=== PATIENT | male | born 1955 | race African-American/Black ===

== ENCOUNTER 2017-09-09 03:45 | Emergency (ER) | payer OTHER, MEDICARE, MEDICAID ==
[2017-09-09] MEDS: ALBUTEROL 0.083% (NEB) 2.5 MG/3 ML AMP NEB (04:23)
[2017-09-09] MEDS: IPRATROPIUM (NEB) 0.5 MG/2.5 ML AMP NEB (04:23)
[2017-09-09 04:46] LABS: ADD MAN DIFF? NO
[2017-09-09 04:47] LABS: WHITE BLOOD COUNT 23.4 10^3/ul (4.8-10.8)
[2017-09-09 04:47] LABS: ABNORMAL IP MESSAGE 1; BASOPHIL # 0.2 10^3/ul (0.0-0.1); BASOPHILS % 0.7 % (0.0-2.0); EOSINOPHILS # 0.6 10^3/ul (0.0-0.5); EOSINOPHILS % 2.5 % (0.0-7.0); HEMATOCRIT 36.1 % (42.0-52.0); LYMPHOCYTES # 0.8 10^3/ul (0.8-2.9); LYMPHOCYTES % 3.6 % (15.0-51.0); MEAN CORPUSCULAR HEMOGLOBIN 34.6 pg (29.0-33.0); MEAN CORPUSCULAR HGB CONC 30.5 g/dl (32.0-37.0); MEAN CORPUSCULAR VOLUME 113.5 fl (82.0-101.0); MEAN PLATELET VOLUME 10.9 fl (7.4-10.4); MONOCYTE # 1.3 10^3/ul (0.3-0.9); MONOCYTES % 5.4 % (0.0-11.0); NEUTROPHIL # 20.5 10^3/ul (1.6-7.5); NEUTROPHILS % 87.3 % (39.0-77.0); NUCLEATED RED BLOOD CELLS # 0.2 10^3/ul (0.0-0.0); NUCLEATED RED BLOOD CELLS% 0.9 /100WBC (0.0-0.0); PLATELET COUNT 425 10^3/UL (140-415); POSITIVE DIFF @See below; RED BLOOD COUNT 3.18 10^6/ul (4.70-6.10); RED CELL DISTRIBUTION WIDTH 16.7 % (11.5-14.5)
[2017-09-09] MEDS: SOD CHLORIDE 0.9% 1,000 ML IV ×3 (04:51→06:56)
[2017-09-09] MEDS: SODIUM CHLORIDE 0.9% 1L BAG IV* (05:01)
[2017-09-09 05:07] LABS: INR 1.65; PARTIAL THROMBOPLASTIN TIME 36.6 Sec (25.0-35.0); PROTIME 19.9 Sec (11.9-14.9); PT RATIO 1.6
[2017-09-09 05:13] LABS: ALANINE AMINOTRANSFERASE 38 IU/L (13-69); ALBUMIN 4.1 g/dl (3.3-4.9); ALBUMIN/GLOBULIN RATIO 1.02; ALKALINE PHOSPHATASE 182 IU/L (42-121); ANION GAP 30 (8-16); ASPARTATE AMINO TRANSFERASE 36 IU/L (15-46); BLOOD UREA NITROGEN 43 mg/dl (7-20); CALCIUM 8.9 mg/dl (8.4-10.2); CARBON DIOXIDE 26 mmol/L (21-31); CHLORIDE 98 mmol/L (97-110); CREATININE 5.72 mg/dl (0.61-1.24); GLUCOSE 166 mg/dl (70-220); SODIUM 148 mmol/L (135-144); TOTAL PROTEIN 8.1 g/dl (6.1-8.1)
[2017-09-09 05:16] LABS: POTASSIUM 5.7 mmol/L (3.5-5.1)
[2017-09-09 05:23] LABS: TROPONIN-I 0.027 ng/ml (0.00-0.12)
[2017-09-09] MEDS: PIPER-TAZO 3.375 GM IV (PMX) 100 ML IVPB (05:40)
[2017-09-09] MEDS: VANCOMYCIN 1 GM (PMX) 250 ML IVPB (05:57)
[2017-09-09] MEDS: LIDOCAINE 1% (MPF) 5 ML VIAL SC (06:30)
[2017-09-09] MEDS ORDERED: VANCOMYCIN IV PER PHARMACY XX (06:30)
[2017-09-09] MEDS ORDERED: ONDANSETRON 4 MG INJ IV (06:30)
[2017-09-09] MEDS ORDERED: ACETAMINOPHEN 650MG/20.3ML CUP PO (06:30)
[2017-09-09 06:41] LABS: LACTIC ACID 4.9 mmol/L (0.5-2.0)
[2017-09-09] MEDS: DEXAMETHASONE 10 MG/ML 1 ML INJ IV (06:55)
[2017-09-09 08:07] LABS: LACTIC ACID 8.1 mmol/L (0.5-2.0)
[2017-09-09] MEDS ORDERED: FENTAnyl 50 MCG/ML VIAL (08:20)
[2017-09-09] MEDS ORDERED: CA CHLORIDE 10% 10 ML SYRINGE ×2 (08:28→09:02)
[2017-09-09] MEDS: FENTAnyl 50 MCG/ML VIAL IV (08:57)
[2017-09-09] MEDS ORDERED: MIDAZOLAM (DRIP) 50 mg/50 mL 50 ML IV (08:58)
[2017-09-09] MEDS ORDERED: INSULIN REGULAR, HUMAN 100 UNIT/1 ML 3ML VIAL (09:11)
[2017-09-09] MEDS ORDERED: DEXTROSE 50% 50 ML SYRINGE IV (09:30)
[2017-09-09] MEDS: INSULIN REGULAR, HUMAN 100 UNIT/1 ML 3ML VIAL IVP (09:31)
[2017-09-09] MEDS: DEXTROSE 50% 50 ML SYRINGE IV (09:31)
[2017-09-09] MEDS: ALBUTEROL/IPRATROPIUM (NEB) 3 ML AMP NEB (09:34)
[2017-09-09] MEDS ORDERED: EPINEPHrine 0.1 MG/ML SYG (09:54)
[2017-09-09] MEDS ORDERED: VASOPRESSIN 100 UNIT in SOD CHLORIDE 0.9% 95 ML IV (10:00)
[2017-09-09] MEDS ORDERED: PHENYLephrine 20MG IN 250 ML 250 ML IV (10:00)
[2017-09-09] MEDS ORDERED: PHENYLephrine 40 MG in SOD CHLORIDE 0.9% 496 ML IV (10:30)
[2017-09-09] MEDS ORDERED: PIPER-TAZO 2.25 GM (PMX) 50 ML IVPB (14:00)
[2017-09-10] MEDS ORDERED: PANTOPRAZOLE 40 MG INJ IV (06:00)
== END 2017-09-09 15:52 | disposition expired ==
LOC: E/R 03:45
DX: A41.9 Sepsis, unspecified organism (principal); R65.20 Severe sepsis without septic shock; N18.6 End stage renal disease; J18.1 Lobar pneumonia, unspecified organism; Z87.891 Personal history of nicotine dependence
CPT/HCPCS: 36415; 71045; 80053; 82962; 83605; 84484; 85025; 85610; 85730; 87040; 92950; 93005; 94002; 94640; 94664; 96374; 96375; 99291-25